=== PATIENT | female | born 1995 | race African-American/Black ===

== ENCOUNTER 2020-01-11 17:37 | Inpatient (IN) | payer MEDICAID ==
[~2020-01-11] VITALS: Ht 157.5 cm; Wt 77.6 kg
--- NOTE | ~2020-01-11 | OP ---
PATIENT NAME: CAROL FERNANDEZ MEDICAL RECORD: [id number] :97 LOCATION:[facility] D.1223 ADMISSION DATE:01/11/20 SURGEON: GERARDO RAVI DO DATE OF OPERATION: 01/13/2020 PREOPERATIVE DIAGNOSES: Nonreassuring heart tracing, chorioamnionitis. POSTOPERATIVE DIAGNOSES: Nonreassuring heart tracing, chorioamnionitis. PRIMARY SURGEON: Gerardo Ravi DO ANESTHESIA: Epidural. PROCEDURE: Primary low transverse section via Pfannenstiel incision. FINDINGS: Male infant, weight 6 pounds 8 ounces, delivered at 0459, Apgars 2, 8, and 9. Normal appearing uterus, bilateral fallopian tubes and bilateral ovaries. SPECIMENS: Placenta and cord. ESTIMATED BLOOD LOSS: 900 cc. IV FLUIDS: 800 cc. URINE OUTPUT: 300 cc concentrated urine. COMPLICATIONS: Mild uterine atony, extra 10 units of Pitocin added to the fluids with improvement in uterine tone. DESCRIPTION OF PROCEDURE: The risks, benefits, alternatives, indications of the procedure were discussed with the patient. She voiced understanding of the procedure and wished to proceed. She was taken to the OR where epidural anesthesia was administered and found to be adequate. She was placed in the dorsal supine position with leftward tilt. She was prepped and draped in the normal sterile fashion. A Pfannenstiel skin incision was made with a scalpel and carried down to the underlying layer of the fascia with the Bovie. The fascia was incised in the midline and extended laterally. The inferior aspect of the fascial incision was grasped with Keri clamps and the rectus muscle was dissected off sharply. Attention was then turned to the superior aspect of the fascial incision. The rectus muscle was dissected off in a similar fashion. The rectus muscle was in the midline down to the level of peritoneum. The peritoneum was identified and noted to be free of adherent bowel and entered bluntly. The peritoneum was further with gentle traction. The bladder blade was inserted and the uterus was incised in a transverse fashion lower uterine segment. The incision was extended with cephalad caudad traction. The 's head was brought to the incision and the infant delivered without difficulty. Mouth and nose were suctioned. Cord was clamped and cut and the was handed off to awaiting pediatricians. The placenta was manually removed. The uterus was exteriorized and a moist lap was used to assure complete removal of placental membranes. The hysterotomy was closed in a running locked fashion with 0 Vicryl suture with double layer closure with good hemostasis noted. Mild uterine atony noted, which was resolved with 10 extra units of Pitocin in the IV fluid bag. The uterus, tubes and ovaries were otherwise noted to be normal. The posterior cul-de-sac was irrigated with warm OPERATIVE REPORT [id number] CAROL FERNANDEZ sterile water and the uterus, tubes and ovaries were returned back to the abdominal cavity. A moist laparotomy sponge was used to assure complete removal of blood clots and fluid from the abdominal cavity. The hysterotomy was reinspected and noted to be hemostatic. The rectus muscle was closed with 2-0 Monocryl in a running fashion with good hemostasis. The fascial incision was closed with 0 Vicryl in a running fashion with good hemostasis. The skin was closed with judit with good hemostasis noted. All needle, lap, sponge, and instrument counts were correct times 2. The patient tolerated the procedure well and she was taken to the recovery room in stable condition. TRANSINT:[id number] Voice Confirmation ID: [id number] DOCUMENT ID: [id number] GERARDO RAVI DO CC: [id number] DICTATION DATE: 01/14/20 1319 TRAFFIC POLICE OFFICER: 01/14/20 1341 ADM IN [facility] [address] [place] [address]
[2020-01-11 18:16] VITALS: BP 120/74; Ht 157.5 cm; Wt 77.6 kg
[2020-01-11] MEDS ORDERED: PREPLUS CA-FE1 EACH PO (18:16)
[2020-01-11] MEDS ORDERED: ACETAMINOPHEN500 M1 PO (18:16)
[2020-01-11 18:49] LABS: HEMATOCRIT 39.7 % (36.0-48.0); HEMOGLOBIN 13.4 g/dL (12-16); MCHC 33.8 g/dL (31.0-37.0); MEAN PLATELET VOLUME 10.6 fL (7.4-10.4); RBC 4.46 10x6/uL (4.00-5.40); RDW 13.4 % (11.5-14.5); WBC 9.1 10x3/uL (4.8-10.8)
[2020-01-13] VITALS (13 sets, daily range): BP systolic 110–142; BP diastolic 58–81
--- NOTE | 2020-01-13 06:09 | NUR ---
FUNDUS FIRM, MIDLINE
[2020-01-13 06:10] LABS: RAPID PLASMA REAGIN Non Reactive (Non Reactive)
--- NOTE | 2020-01-13 07:30 | NUR ---
MOD LOCHIA NOTED ON PAD UNDER PT- PADS CHANGED AND HOLLY CARE DONE. ICE CAP TO ABD. VERBAL RESPONSES APPRO TO QUESTIONS. NO REQUESTS.
--- NOTE | 2020-01-13 08:15 | NUR ---
SMALL LOCHIA NOTED ON PAD- NO CLOTS.
--- NOTE | 2020-01-13 08:21 | NUR ---
ENDS DOWN CHECKER MORPHINE SETUP 1MG Q10MIN- PT INSTRUCTED ON USE. STATES UNDERSTANDING.
--- NOTE | 2020-01-13 08:42 | NUR ---
ASLEEP AT THIS TIME. RESP REG AND EVEN.
--- NOTE | 2020-01-13 09:19 | NUR ---
temp down to 98.6 orally. o2 removed-nc at 2l/min. o2 sat 100% scant lochia noted on pad. position changed to lt side and propped with pillow for comfort.
--- NOTE | 2020-01-13 10:00 | NUR ---
EMPTIED 1600CC FROM RAWLS BAG. 275CC FROM CHAMBER.
--- NOTE | 2020-01-13 11:04 | NUR ---
INFANT AT BREAST- ASSISTED PER Aishwarya ROMERO LPN. HOLLY PAD WITH SMALL TO MOD LOCHIA NOTED- PADS CHANGED. VS DONE. USING LENS EDGE GRINDER MACHINE AT WILL. STATES THAT PAIN IS NOT BETTER -WILL BOLUS LENS EDGE GRINDER MACHINE.
--- NOTE | 2020-01-13 11:14 | NUR ---
NIGHT NURSE BOLUS IN.
--- NOTE | 2020-01-13 12:00 | NUR ---
POSITIONS SELF IN BED-POSITION ON RT SIDE. INCENTIVE JACKI USED
[2020-01-13 12:37] LABS: UDS - AMPHET NEGATIVE QUAL (NEGATIVE); UDS - BARB NEGATIVE QUAL (NEGATIVE); UDS - BENZO NEGATIVE QUAL (NEGATIVE); UDS - COCAINE NEGATIVE QUAL (NEGATIVE); UDS - OPIATE NEGATIVE QUAL (NEGATIVE); UDS - PCP NEGATIVE QUAL (NEGATIVE); UDS - THC NEGATIVE QUAL (NEGATIVE)
--- NOTE | 2020-01-13 14:04 | NUR ---
VSS. FUNDUS FIRM MIDLINE AND U2. SMALL AMT RUBRA LOCHIA NOTED. PERICARE DONE. PADS AND CHUX CHANGED. PT ABLE TO MOVE IN BED. SCD'S ON BLE. I&O DONE. REPORTS THAT R WRIST PIV IS SORE, SWELLING NOTED. WILL RESITE.
--- NOTE | 2020-01-13 14:23 | NUR ---
R WRIST PIV INFILTRATED, REMOVED WITH TEMP INTACT. BANDAID APPLIED. RESITED TO L FA, 20 G TIMES ONE STICK, EXCELLENT BLOOD RETURN NOTED. SECURED WITH TEGADERM AND TAPE.
--- NOTE | 2020-01-13 14:30 | NUR ---
GAS REGULATOR REPAIRER SYRINGE CHANGED PER EMAR. REPORTS THAT GAS REGULATOR REPAIRER IS HELPING WITH PAIN. DENIES NEED FOR ADDITIONAL INTERVENTION. BED IN LOW POSITON WITH SRUP X2. CALL LIGHT AND PHONE WITHIN REACH. WILL CONTINUE TO MONITOR.
--- NOTE | 2020-01-13 15:08 | NUR ---
VSS. FUNDUS REMAINS FIRM, MIDLINE AND U2 WITH SCANT AMT RUBRA LOCHIA, NO CLOTS NOTED. 2 GM AMP HUNG IVPB PER ORDER. PT CONTINUES TO RATE PAIN 7/10, REQUEST ADDITIONAL INTERVENTION. WILL REPORT TO MD. BED IN LOW POSITION WITH SRUP X2. CALL LIGHT AND PHONE WITHIN REACH. WILL CONTINUE TO MONITOR.
--- NOTE | 2020-01-13 15:29 | NUR ---
REPORT GIVEN TO DR. BILLY REGARDING PT CONTINUED C/O PAIN REMAINING 12/25. ORDERS REC'D.
--- NOTE | 2020-01-13 15:50 | NUR ---
PT UPDATED ON CLINICAL COORDINATOR DOSE CHANGE, VERBALIZES UNDERSTANDING. CLINICAL COORDINATOR REPROGRAMMED AND VERIFIED WITH Maddi FERNANDEZ RN.
--- NOTE | 2020-01-13 17:10 | NUR ---
report of temp to dr cabezas- new orders received.
--- NOTE | 2020-01-13 17:35 | NUR ---
LAB HERE FOR BLOOD CULTURES.
--- NOTE | 2020-01-13 18:13 | NUR ---
STATES IS FEELING BETTER. HOLLY CARE DONE. SMALL LOCHIA NOTED OM PAD- PAD CHANGED. FUNDUS UU/FIRM. TEMP RECHECKED- 102.5.
--- NOTE | 2020-01-13 19:10 | NUR ---
USING INCENTIVE JACKI SEVERAL TIMES TODAY- INHALE 2500.
--- NOTE | 2020-01-13 19:11 | NUR ---
REPORT TO PM SHIFT.
--- NOTE | 2020-01-13 19:30 | NUR ---
ASSESSMENT PER FLOW SHEET, VS OBTAINED, IV IN LEFT FA INTACT WITH NO REDNESS OR EDEMA INFUSING NS WITH PITOCIN AT 50ML/HR, MORPHINE TONNAGE COMPILATION CLERK FOR PAIN MANAGEMENT AT THIS TIME, PT RATES PAIN 11/25, PT PUSHES BUTTON AT THIS TIME, POC DISCUSSED WITH PT ABOUT REMOVING RAWLS AND STOPPING TONNAGE COMPILATION CLERK, PT VERBALIZES UNDERSTANDING, PT ALSO INFORMED THAT SHE WILL BE TRANSFERRED TO [facility] SHORTLY, PT VERBALIZES UNDERSTANDING, RAWLS CATH INTACT DRAINING DARK YELLOW URINE, BIKINI INC WITH DRESSING CDI WITH NO DRAINAGE, LIGHT BLEEDING WITH NO CLOTS NOTED, SCD'S ON AND WORKING PROPERLY, PT DENIES NEEDS AT THIS TIME, INFANT IN OPEN CRIB CART AND FOB AT BEDSIDE
--- NOTE | 2020-01-13 19:55 | NUR ---
PT MEDICATED WITH PERCOCET FOR PAIN LEVEL OF 6/10. RAWLS CATH DISCONTINUED WITH 50 ML NOTED IN CHAMBER. LICENSED PHYSICAL THERAPIST ASSISTANT OF MORPHINE DISCONTINUED AT THIS TIME. WILL MONITOR PAIN LEVELS THIS SHIFT. Aline DE LA GARZA RN
--- NOTE | 2020-01-13 20:18 | NUR ---
PT MEDICATED WITH ZOFRAN FOR NAUSEA AND PROVIDED WITH CRACKERS. WILL MONITOR. Aline DE LA GARZA RN
--- NOTE | 2020-01-13 23:40 | NUR ---
PT AWAKE, VS OBTAINED, PT UP TO BR WITH ASSISTANCT, GAIT STEADY, VOIDED 300 MLS OF LIGHTLY BLOOD TINGED URINE, ASSISTED PT WITH HOLLY CARE, HOLLY PAD, PANTIES, AND CLEAN GOWN, LINENS CHANGED ON BED, PT BACK TO BED, SCD'S PLACED BACK ON AND WORKING PROPERLY, PT C/O PAIN AND CRAMPING, WILL ADM PAIN MED AND TORADOL
--- NOTE | 2020-01-14 00:07 | NUR ---
ADM PERCOCET PO AND TORADOL SIVP PER MD ORDERS, SEE EMAR, PT REQUESTED AND SERVED REGULAR CRACKERS, FRESH H20, AND APPLE JUICE, PT DENIES FURTHER NEEDS, FOB AT BEDSIDE
--- NOTE | 2020-01-14 01:08 | NUR ---
PT RESTING WITH EYES CLOSED, AROUSES TO SOFT VERBAL STIMULATION, GENTAMYCIN HUNG IVPB PER MD ORDERS, SEE EMAR, PT REPORTS THAT SHE WOULD LIKE FOR NURSERY TO FEED INFANT AT THIS TIME, PT A LITTLE SWEATY, AIR TURNED DOWN BECAUSE ROOM WAS WARM, GOWN CHANGED, SCD'S CONTINUE ON AND WORKING PROPERLY, DENIES FURTHER NEEDS, FOB ASLEEP AT BEDSIDE
--- NOTE | 2020-01-14 02:22 | NUR ---
PT RESTING WITH EYES CLOSED, RESP QUIET NO DISTRESS NOTED, LEFT UNDISTURBED AT THIS TIME, FOB ASLEEP AT BEDSIDE
--- NOTE | 2020-01-14 04:08 | NUR ---
PT RESTING WITH EYES CLOSED, AROUSES TO SOFT VERBAL STIMULATION, TO ROOM VIA OPEN CRIB CART, BANDS CHECKED, INFANT TO PT'S ARMS FOR VIA NIPPLE SHIELD, ADM AMPICILLIN IVPB PER MD ORDERS, SEE EMAR, PT DENIES NEEDS AT THIS TIME, FOB ASLEEP AT BEDSIDE
--- NOTE | 2020-01-14 05:16 | NUR ---
PT WELDING FOREMAN LIGHT, PT UP TO BR WITH ASSISTANCE, VOIDED 400 MLS OF LIGHTLY BLOOD TINGED URINE BY SELF WITH NO DIFFICULTY, ASSISTED PT WITH HOLLY PAD AND PANTIES, LIGHT BLEEDING NOTED WITH NO CLOTS, PT BACK TO BED, OBTAINED TEMP, SCD'S RECONNECTED AND WORKING PROPERLY, ADM PERCOCET PER MD ORDERS, SEE EMAR, REQUESTD AND SERVED CRACKERS, DENIES FURTHER NEEDS, IN OPEN CRIB CART AND FOB AT BEDSIDE
--- NOTE | 2020-01-14 06:17 | NUR ---
PT RESTING WITH EYES CLOSED, AROUSES TO SOFT VERBAL STIMULATION, ADM MOTRIN PER MD ORDERS, SEE EMAR, PT REQUESTED AND SERVED FRESH H20, PT INST TO AMB TODAY AT LEAST 3 TIMES, PT VERBALIZES UNDERSTANDING, DENIES FURTHER NEEDS, FOB ASLEEP AT BEDSIDE
[2020-01-14 06:41] LABS: BASOPHILS 0.1 % (0-2); EOSINOPHILS 0.4 % (0-7); HEMATOCRIT 35.6 % (36.0-48.0); HEMOGLOBIN 11.7 g/dL (12-16); IMMATURE GRANULOCYTES 0.3 % (0-5); LYMPHOCYTES 5.4 % (15-50); MCH 29.5 pg (26.0-34.0); MCHC 32.9 g/dL (31.0-37.0); MCV 89.7 fL (80.0-100.0); MEAN PLATELET VOLUME 10.8 fL (7.4-10.4); MONOCYTES 4.7 % (2-11); NEUTROPHILS 89.1 % (40-80); RBC 3.97 10x6/uL (4.00-5.40); RDW 13.6 % (11.5-14.5); WBC 12.5 10x3/uL (4.8-10.8)
[2020-01-14 06:53] LABS: PLATELET COUNT 161 10x3/uL (130-400)
[2020-01-14 07:38] VITALS: BP 119/71
--- NOTE | 2020-01-14 07:38 | NUR ---
SHIFT ASSESSMENT COMPLETED PER FLOWSHEET. VSS. REPORTS THAT SHE IS GETTING OOB WITH ASSIST TO BR. REPORTS THAT SHE IS VOIDING AND PASSING SOME FLATUS. BOWELS SOUNDS HYPOACTIVE X4. ENCOURAGED AMBULATION ON, VERBALIZES UNDERSTANDING. FUNDUS FIRM, MIDLINE AND U2 WITH SMALL AMT RUBRA LOCHIA, NO CLOTS NOTED. 20 PIV TO L FA, INFUSING WITHOUT DIFFICULTY, NO S/S OF INFILTRATION NOTED. SCD'S ON BLE. SIGNIFICANT OTHER AT BEDSIDE, SUPPORTIVE AND ATTENTIVE TO PT AND INFANT NEEDS. BED IN LOW POSITION WITH SRUP X2. CALL LIGHT AND PHONE WITHIN REACH. WILL CONTINUE TO MONITOR.
--- NOTE | 2020-01-14 08:49 | NUR ---
UP TO BATHROOM- VOIDED 600CC URINE. SCANT LOCHIA NOTED ON PAD.
--- NOTE | 2020-01-14 10:05 | NUR ---
rings call light-requests pain medication- rates pain a 7 on scale of 0-10- co pain in abd and incision.
--- NOTE | 2020-01-14 12:15 | NUR ---
SHOWER DONE- LINENS CHANGED.
--- NOTE | 2020-01-14 12:25 | NUR ---
ABD DRESSING OFF AFTER SHOWER. ALYSHA INTACT. INCISION APPEARANCE WNL.
[2020-01-14 12:43] VITALS: BP 116/78
--- NOTE | 2020-01-14 13:56 | NUR ---
C/O ABD AND INCISIONAL DISCOMFORT. PERCOCET PROVIDED PER ORDER AND PT REQUEST. DENIES ADDITIONAL NEEDS. INFANT TO NBN. FOB AT BEDSIDE, SUPPORTIVE AND ATTENTIVE TO PT NEEDS. BED IN LOW POSITION WITH SRUP X2. CALL LIGHT AND PHONE WITHIN REACH. WILL CONTINUE TO MONITOR.
--- NOTE | 2020-01-14 17:18 | NUR ---
AMBULATES IN HALLWAY-TOLERATED WELL.
--- NOTE | 2020-01-14 18:10 | NUR ---
CO IV STINGING- NOTED SLIGHT REDNESS AROUND SITE. IV PUMP TURNED OFF. WILL RESITE IV.
--- NOTE | 2020-01-14 18:40 | NUR ---
IV RESITED RT HAND USING 20G CATH WITHOUT DIFFICULTY ON 2ND STICK (ONE ATTEMPT RT WRIST)- IV FLUIDS RESTARTED. IV IN LT FOREARM REMOVED- CATH TIP INTACT AND PRESSURE HELD.
--- NOTE | 2020-01-14 19:10 | NUR ---
PT GETTING READY TO EAT DINNER, INFORMED PT THAT I WILL BE BACK SHORTLY TO DO ASSESSMENT, PT VERBALIZES UNDERSTANDING, SUMA PANDA IVPB PER MD ORDERS, SEE EMAR, PT DENIES NEEDS OR PAIN AT THIS TIME, STATES "I FEEL FINE AFTER THE OTHER NURSE GAVE ME MY PAIN MEDICINE", FOB AT BEDSIDE
[2020-01-14 20:40] VITALS: BP 121/81
--- NOTE | 2020-01-14 20:40 | NUR ---
ASSESSMENT PER FLOW SHEET, VS OBTAINED, IV IN RIGHT HAND INTACT WITH NO REDNESS OR EDEMA INFUSING NS AT KVO AT THIS TIME, FF, ML, U/1, LITE BLEEDING NOTED WITH NO CLOTS, BIKINI INC WITH ALYSHA CDI WITH NO DRAINAGE, HOLLY PAD OVER INC FOR COMFORT AND MOISTURE CONTROL, TALKED TO PT ABOUT INC CARE, PT VERBALIZES UNDERSTANDING, PT REPORTS FLATUS, NO BM AND VOIDING WITH NO DIFFICULTY, PT RATES INC PAIN 5/10, INFORMED PT THAT SHE COULD HAVE THE PERCOCET AT 10:30PM AND THE MOTRIN WAS DUE AT MIDNIGHT, PT VERBALIZES UNDERSTANDING, PT INST ON HAVING SCD'S ON, PT STATES "I NEED TO USE THE BR BEFORE YOU PUT THOSE THINGS ON", PT INST TO USE CALL LIGHT WHEN BACK IN BED, INFANT IN OPEN CRIB CART AND FOB AT BEDSIDE
--- NOTE | 2020-01-14 21:03 | NUR ---
SCD'S PLACED ON AND WORKING PROPERLY, PT DENIES FURTHER NEEDS, INFORMED PT THAT I WILL BE BACK IN SHORTLY TO HAND ANOTHER ANTIBIOTIC
--- NOTE | 2020-01-14 21:24 | NUR ---
AMPICILLIN HUNG IVPB PER MD ORDERS, SEE EMAR
--- NOTE | 2020-01-14 22:36 | NUR ---
PT AT THIS TIME, ADM PERCOCET PO PER MD ORDERS, SEE EMAR, PT DENIES FURTHER NEEDS, FOB AT BEDSIDE, SCD'S CONTINUE ON AND WORKING PROPERLY
--- NOTE | 2020-01-14 23:59 | NUR ---
PT AWAKE, ADM MOTRIN PER MD ORDERS, SEE EMAR, SCD'S DISCONNECTED, PT UP TO BR, GAIT STEADY, WITH ASSISTANCE FROM FOB
[2020-01-15 00:12] VITALS: BP 118/71
--- NOTE | 2020-01-15 00:12 | NUR ---
PT GETTING BACK INTO BED, SCD'S RECONNECTED AND WORKING PROPERLY, VS OBTAINED, PT REQUESTED AND SERVED FRESH H20, DENIES FURTHER NEEDS, IN OPEN CRIB CART AT BEDSIDE
--- NOTE | 2020-01-15 00:46 | NUR ---
PT PATIENT CARE REPRESENTATIVE LIGHT, SCD'S BEEPING, SCD'S READJUSTED AND WORKING PROPERLY, GENTAMYCIN HUNG IVPB PER MD ORDERS, SEE EMAR, PT DENIES NEEDS AT THIS TIME, FOB AT BEDSIDE
--- NOTE | 2020-01-15 02:14 | NUR ---
PT RESTING WITH EYES CLOSED, RESP QUIET, NO DISTRESS NOTED, LEFT UNDISTURBED AT THIS TIME, FOB ASLEEP AT BEDSIDE
--- NOTE | 2020-01-15 03:00 | NUR ---
SUMA HUNG IVPB PER MD ORDERS, SEE EMAR, PT DENIES NEEDS AT THIS TIME
[2020-01-15 04:14] VITALS: BP 103/74
--- NOTE | 2020-01-15 04:14 | NUR ---
PT AWAKE, VS OBTAINED, SCD'S REMOVED AT THIS TIME PER PT'S REQUEST, ADM PERCOCET PO AND AMPICILLIN IVPB PER MD ORDERS, SEE EMAR, PT REPORTS BEING SWEATY, CLEAN GOWN APPLIED AND FRESH SHEET PROVIDED, PT REQUESTED AND PROVIDED HOLLY PANTIES, DENIES FURTHER NEEDS, IN OPEN CRIB CART AND FOB AT BEDSIDE
--- NOTE | 2020-01-15 05:55 | NUR ---
PT SOCIAL MEDIA EXECUTIVE LIGHT, IV BEEPING, ANTIBIOTICS COMPLETED, IV CONVERTED TO SALINE LOCK, FLUSHED WITH 10MLS OF NS WITH NO DIFFICULTY, ADM MOTRIN PO PER MD ORDERS, PT DENIES NEEDS AT THIS TIME, PT HOLDING INFANT, FOB ASLEEP AT BEDSIDE
[2020-01-15 07:40] VITALS: BP 115/68
--- NOTE | 2020-01-15 07:40 | NUR ---
TO ROOM FOR ASSESSMENT. SEE FLOWSHEET. PT SITTING UP IN BED. MALE VISITOR AT BEDSIDE. NO COMPLAINTS OR NEEDS VOICED AT THIS TIME.
--- NOTE | 2020-01-15 08:20 | NUR ---
PT REQUESTS PAIN MEDIATION.
--- NOTE | 2020-01-15 08:30 | NUR ---
DR. RAVI HERE FOR ROUNDS.
--- NOTE | 2020-01-15 09:50 | NUR ---
PT UP TO SHOWER. IV SITE COVERED. LINENS CHANGED.
--- NOTE | 2020-01-15 10:46 | NUR ---
ROUNDS MADE. PT. AMBULATING IN ROOM. SIGNIFICANT OTHER AT BEDSIDE WITH INFANT IN ARMS. NO NEEDS VOICED AT THIS TIME.
--- NOTE | 2020-01-15 13:57 | NUR ---
PT. RESTING IN BED; LIGHTS LOW. STATES PAIN IS BETTER AND IS READY TO TAKE A NAP. NO OTHER CONCERNS OR NEEDS VOICED AT THIS TIME. MALE VISITOR AT BEDSIDE.
--- NOTE | 2020-01-15 14:41 | NUR ---
ROUNDING COMPLETE. PATIENT DENIES ANY NEEDS AT THIS TIME. IN ROOM SNUGGLING BABY. CALL LIGHT IN REACH. SIDE RAILS UP X2.
--- NOTE | 2020-01-15 16:45 | NUR ---
TO ROOM FOR VS. PT SITTING UP IN BED. SIGNIFICANT OTHER AT BEDSIDE. PT STATES SHE WOULD LIKE PAIN MEDICATION WHEN AVAILABLE.
[2020-01-15 16:50] VITALS: BP 124/85
--- NOTE | 2020-01-15 17:35 | NUR ---
PT UP AMBULATING WITH SIGNIFICANT OTHER.
--- NOTE | 2020-01-15 17:45 | NUR ---
PATIENT RETURNED TO ROOM WITH SIGNIFICANT OTHER. NO NEEDS OR CONCERNS AT THIS TIME.
[2020-01-15 19:45] VITALS: BP 126/81
--- NOTE | 2020-01-15 19:45 | NUR ---
ASSESSMENT PER FLOW SHEET, VS OBTAINED, SALINE LOCK IN RIGHT HAND INTACT WITH NO REDNESS OR EDEMA, FF, ML, U/2, LITE BLEEDING NOTED ON HOLLY PAD WITH NO CLOTS, BIKINI INC WITH ALYSHA CDI WITH NO DRAIANGE NOTED, PT REPORTS FLATUS, NO BM AND VOIDING WITH NO DIFFICULTY, RATES INC PAIN 5/10, INFORMED PT THAT I WILL ADM PAIN MED WHEN DUE, PT VERBALIZES UNDERSTANDING, DENIES NEEDS AT THIS TIME, FOB AT BEDSIDE
--- NOTE | 2020-01-15 20:23 | NUR ---
PT SITTING UP IN BED, PT INFORMED THAT SHE CAN HAVE HER PAIN MED AT 9:30PM, PT VERBALIZES UNDERSTANDING, REQUESTS CRACKER WITH ADM OF PAIN MED, PT DENIES NEEDS AT THIS TIME, IN OPEN CRIB CART AND FOB AT BEDSIDE
--- NOTE | 2020-01-15 21:39 | NUR ---
ADM PERCOCET PO PER MD ORDERS, SEE EMAR WITH CRACKERS, PT DENIES FURTHER NEEDS, FOB HOLDING
--- NOTE | 2020-01-15 22:19 | NUR ---
PT EATING SNACK, RATES INC PAIN 09/25, DENIES NEEDS AT THIS TIME, IN OPEN CRIB CART AND FOB AT BEDSIDE
--- NOTE | 2020-01-15 22:39 | NUR ---
PT ADULT SCHOOL TEACHER LIGHT, PT , FOB ASSISTING PT, PT REQUESTED AND PROVIDED ANOTHER GOWN, STATES "I LEAKED ALL OVER IT", PT DENIES FURTHER NEEDS
--- NOTE | 2020-01-16 00:02 | NUR ---
PT HOLDING INFANT TO BREAST, ADM MOTRIN PO PER MD ORDERS, SEE EMAR, PT REQUESTED AND SERVED FRESH H20, DENIES FURTHER NEEDS, FOB AT BEDSIDE
--- NOTE | 2020-01-16 01:47 | NUR ---
PT JAVA TECH LIGHT, REPORTS RIGHT BREAST FEELS HARD, THIS RN AND ESTEE RAMÍREZ, RN EVALUATED THE BREAST, BREAST IS ENGORGED, PT REPORTS JUST ON LEFT BREAST BECAUSE WILL NOT LATCH TO RIGHT, ESTEE RAMÍREZ, RACHEL ASSISTED PT WITH GETTING LATCHED TO RIGHT BREAST, TALKED TO PT ABOUT THE IMPORTANCE OF NOT JUST ON ONE SIDE, PT VERBALIZES UNDERSTANDING, PT C/O INC PAIN, WILL ADM PAIN MED, FOB AT BEDSIDE
--- NOTE | 2020-01-16 02:11 | NUR ---
PT REPORTS INFANT BREASTFED FOR 5 MINUTES TO RIGHT BREAST, TALKED TO PT ABOUT USING BREAST PUMP, PT REPORTS THAT SHE WOULD LIKE TO DO THAT, INFORMED PT THAT I WILL HAVE NSY NURSE BRING IN A BREAST PUMP, ADM RUTLEDGE PER MD ORDERS, SEE EMAR
--- NOTE | 2020-01-16 02:21 | NUR ---
NSY NURSE TO ROOM WITH BREAST PUMP
[2020-01-16 04:25] VITALS: BP 119/80
--- NOTE | 2020-01-16 04:25 | NUR ---
PT AWAKE, HOLDING INFANT, VS OBTAINED, RATES PAIN AND CRAMPING 4/10, DENIES NEEDS AT THIS TIME, FOB AT BEDSIDE
--- NOTE | 2020-01-16 06:08 | NUR ---
PT AWAKE, ADM MOTRIN PO PER MD ORDERS, SEE EMAR, PT DENIES FURTHER NEEDS, INFANT IN OPEN CRIB CART AND FOB AT BEDSIDE
[2020-01-16 07:30] VITALS: BP 130/79
--- NOTE | 2020-01-16 07:30 | NUR ---
AM ASSESSMENT COMPLETED, SEE FLOWSHEET. SEE EMAR FOR ALL MEDS ADM BY THIS RN.
--- NOTE | 2020-01-16 08:30 | NUR ---
DR. RAVI ON UNIT, ROUNDS MADE TO SEE PT. DR. RAVI WANTS PT TO FOLLOW UP IN CLINIC 7 DAYS POST OP TO HAVE ALYSHA REMOVED.
--- NOTE | 2020-01-16 10:30 | NUR ---
SL TO R HAND DC'D WITH CATH INTACT, PT DEANNA WELL. PRESSURE HELD AND THEN BAND AID APPLIED.
[2020-01-16] MEDS ORDERED: PERCOCET 5-3251 TAB PO (10:34)
--- NOTE | 2020-01-16 10:45 | NUR ---
DISCHARGE INSTRUCTIONS EXPLAINED TO PT. COPIES OF D/C INSTRUCTIONS GIVEN TO PT, ALONG WITH PP INSTRUCTION SHEET, PRESCRIPTION, EMERGENCY/COMMUNITY RESOURCE INFORMATION. PT DENIES ALL OTHER NEEDS AT THIS TIME. SRUP X2, CALL LIGHT AND PHONE WITHIN REACH.
--- NOTE | 2020-01-16 11:46 | NUR ---
PT GIVEN PERCOCET AND MOTRIN PRIOR TO ROOM IN STATUS, WHICH IS NOW. SEE EMAR FOR ALL MEDS ADM BY THIS RN.
== END 2020-01-16 10:45 | disposition home or self-care (01) | DRG 786 ==
LOC: D.LDO 17:37 → D.LD 17:40 → D.WS 01-13 20:40
PROVIDERS: Student in an Organized Health Care Education/Training Program; ADMIT Obstetrics & Gynecology; ATTEND Obstetrics & Gynecology
PROC: 10D00Z1 Extraction of Products of Conception, Low, Open Approach (ICD-10-PCS; 2020-01-13)
PROC: 3E033VJ Introduction of Other Hormone into Peripheral Vein, Percutaneous Approach (ICD-10-PCS; principal; 2020-01-13 04:53)
DX: O76 Abnormality in fetal heart rate and rhythm complicating labor and delivery (principal); O41.1230 Chorioamnionitis, third trimester, not applicable or unspecified; Z3A.39 39 weeks gestation of pregnancy; Z37.0 Single live birth